=== PATIENT | female | born 1975 | race African-American/Black ===

== ENCOUNTER → 2018-09-25 | Emergency (ER) | payer OTHER ==
[2018-09-25 10:58] LABS: URINE BLOOD (Dip) POC Negative (NEGATIVE); URINE GLUCOSE (Dip) POC Negative (NEGATIVE); URINE KETONES (Dip) POC Negative (NEGATIVE); URINE LEUKOCYTE EST (Dip) POC Trace (NEGATIVE); URINE NITRITE (Dip) POC Negative (NEGATIVE); URINE TOTAL PROTEIN POC Trace (NEGATIVE)
[2018-09-25] MEDS: KETOROLAC 60 MG INJ IM (11:05)
== END | disposition home or self-care (01) ==
LOC: FTE 09:44
DX: M54.9 Dorsalgia, unspecified (principal); R30.0 Dysuria
CPT/HCPCS: 81003; 81025; 87086; 96372; 99284-25